=== PATIENT | female | born 1945 | race Caucasian/White ===

== ENCOUNTER → 2016-07-24 | Outpatient (REF) | payer MEDICARE, BC | END | disposition home or self-care (01) | LOC: M LAB REF 16:33 | PROVIDERS: ATTEND Obstetrics & Gynecology | DX: R39.89 Other symptoms and signs involving the genitourinary system (principal) ==

== ENCOUNTER → 2016-12-16 | Outpatient (REF) | payer MEDICARE, BC ==
[2016-12-16 12:26] LABS: ALBUMIN 3.9 GM/DL (3.2-5.2); ALBUMIN/GLOBULIN RATIO 1.34 (1.00-1.93); ALKALINE PHOSPHATASE 67 U/L (45-117); ALT/SGPT 34 U/L (12-78); ANION GAP 9 MEQ/L (8-16); AST/SGOT 24 U/L (15-37); BILIRUBIN,TOTAL 0.4 MG/DL (0.2-1.0); BLOOD UREA NITROGEN 12 MG/DL (7-18); CALCIUM LEVEL 9.7 MG/DL (8.8-10.2); CARBON DIOXIDE LEVEL 29 MEQ/L (21-32); CHLORIDE LEVEL 101 MEQ/L (98-107); CHOLESTEROL LEVEL 188 MG/DL (<200); CREATININE FOR GFR 0.75 MG/DL (0.55-1.02); GLOMERULAR FILTRATION RATE > 60.0 (>39); GLUCOSE, FASTING 136 MG/DL (83-110); POTASSIUM SERUM 3.7 MEQ/L (3.5-5.1); SODIUM LEVEL 139 MEQ/L (136-145); TOTAL PROTEIN 6.8 GM/DL (6.4-8.2); TRIGLYCERIDES LEVEL 270 MG/DL (<150)
== END ==
LOC: M SFHCCLAY 07:23
PROVIDERS: ATTEND Family Medicine
DX: E78.2 Mixed hyperlipidemia (principal); E11.9 Type 2 diabetes mellitus without complications; I10 Essential (primary) hypertension

== ENCOUNTER → 2017-06-07 | Outpatient (REF) | payer MEDICARE, BC ==
[2017-06-07 12:37] LABS: ALBUMIN 3.9 GM/DL (3.2-5.2); ALBUMIN/GLOBULIN RATIO 1.34 (1.00-1.93); ALKALINE PHOSPHATASE 75 U/L (45-117); ALT/SGPT 50 U/L (12-78); ANION GAP 10 MEQ/L (8-16); AST/SGOT 49 U/L (7-37); BILIRUBIN,TOTAL 0.6 MG/DL (0.2-1.0); BLOOD UREA NITROGEN 14 MG/DL (7-18); CALCIUM LEVEL 9.5 MG/DL (8.8-10.2); CARBON DIOXIDE LEVEL 29 MEQ/L (21-32); CHLORIDE LEVEL 101 MEQ/L (98-107); CHOLESTEROL LEVEL 189 MG/DL (<200); CREATININE FOR GFR 0.72 MG/DL (0.55-1.02); GLOMERULAR FILTRATION RATE > 60.0 (>39); GLUCOSE, FASTING 133 MG/DL (83-110); SODIUM LEVEL 140 MEQ/L (136-145); TOTAL PROTEIN 6.8 GM/DL (6.4-8.2); TRIGLYCERIDES LEVEL 237 MG/DL (<150)
== END ==
LOC: M SFHCCLAY 07:50
PROVIDERS: ATTEND Family Medicine
DX: E11.9 Type 2 diabetes mellitus without complications (principal); I10 Essential (primary) hypertension; E78.2 Mixed hyperlipidemia

== ENCOUNTER → 2017-06-24 | Outpatient (CLI) | payer MEDICARE, BC ==
--- NOTE | 2017-06-24 15:24 | REP ---
LEFT SHOULDER: Three views of the left shoulder are performed. No acute fracture or dislocation is seen. There is moderate narrowing and mild hypertrophic changes at the acromioclavicular joint. There appears to be mild narrowing at the glenohumeral joint. A small calcification at the margin of the superior bony glenoid may represent a tendinous or cartilaginous calcification. IMPRESSION: Mild degenerative changes.
== END ==
LOC: M CLY 11:59
PROVIDERS: ATTEND Family Medicine
DX: M19.012 Primary osteoarthritis, left shoulder (principal)

== ENCOUNTER 2017-06-28 14:41 | Outpatient (RCR) | payer MEDICARE, BC | END 2017-07-11 | LOC: M PT 06-30 11:19 | DX: Z51.89 Encounter for other specified aftercare (principal); M75.42 Impingement syndrome of left shoulder | CPT/HCPCS: 97110 ==

== ENCOUNTER → 2017-07-07 | Outpatient (CLI) | payer MEDICARE, BC | LOC: M WHC 10:07 | DX: Z12.31 Encounter for screening mammogram for malignant neoplasm of breast (principal); Z78.0 Asymptomatic menopausal state | CPT/HCPCS: G0202 ==

== ENCOUNTER 2017-07-13 12:49 | Outpatient (RCR) | payer MEDICARE, BC | END 2017-08-11 | LOC: M PT 12:49 | DX: Z51.89 Encounter for other specified aftercare (principal); M75.42 Impingement syndrome of left shoulder | CPT/HCPCS: 97110 ==

== ENCOUNTER → 2017-10-07 | Outpatient (REF) | payer MEDICARE, BC ==
[2017-10-07 11:33] LABS: ANION GAP 7 MEQ/L (8-16); BLOOD UREA NITROGEN 18 MG/DL (7-18); CARBON DIOXIDE LEVEL 27 MEQ/L (21-32); CHLORIDE LEVEL 107 MEQ/L (98-107); CREATININE FOR GFR 0.74 MG/DL (0.55-1.30); GLOMERULAR FILTRATION RATE > 60.0 (>39); GLUCOSE, FASTING 109 MG/DL (70-100); POTASSIUM SERUM 4.2 MEQ/L (3.5-5.1); SODIUM LEVEL 141 MEQ/L (136-145)
[2017-10-07 11:42] LABS: ESTIMATED AVERAGE GLUCOSE 137 MG/DL (60-110); HEMOGLOBIN A1c 6.4 %
== END ==
LOC: M SFHCCLAY 08:12
DX: I10 Essential (primary) hypertension (principal); E11.9 Type 2 diabetes mellitus without complications
CPT/HCPCS: 83036

== ENCOUNTER → 2018-04-19 | Outpatient (REF) | payer MEDICARE, BC ==
[2018-04-19 14:22] LABS: ALBUMIN 4.1 GM/DL (3.2-5.2); ALBUMIN/GLOBULIN RATIO 1.71 (1.00-1.93); ALKALINE PHOSPHATASE 77 U/L (45-117); ALT/SGPT 25 U/L (12-78); ANION GAP 5 MEQ/L (8-16); AST/SGOT 13 U/L (7-37); BILIRUBIN,TOTAL 0.4 MG/DL (0.2-1.0); BLOOD UREA NITROGEN 26 MG/DL (7-18); CALCIUM LEVEL 9.2 MG/DL (8.8-10.2); CARBON DIOXIDE LEVEL 30 MEQ/L (21-32); CHLORIDE LEVEL 106 MEQ/L (98-107); CREATININE FOR GFR 0.73 MG/DL (0.55-1.30); GLOMERULAR FILTRATION RATE > 60.0 (>39); GLUCOSE, FASTING 117 MG/DL (70-100); POTASSIUM SERUM 4.4 MEQ/L (3.5-5.1); SODIUM LEVEL 141 MEQ/L (136-145); TOTAL PROTEIN 6.5 GM/DL (6.4-8.2)
[2018-04-19 14:55] LABS: MALB URINE SIEMENS 21.7 MG/L
[2018-04-19 15:12] LABS: MAU/CREAT RATIO 16.2 MCG/MG (0.0-30.0)
[2018-04-19 17:00] LABS: ESTIMATED AVERAGE GLUCOSE 131 MG/DL (60-110); HEMOGLOBIN A1c 6.2 %
== END ==
LOC: M SFHCCLAY 08:06
DX: I10 Essential (primary) hypertension (principal); E11.9 Type 2 diabetes mellitus without complications
CPT/HCPCS: 84443

== ENCOUNTER → 2018-04-22 | Outpatient (REF) | payer MEDICARE, BC ==
[2018-04-22 16:19] LABS: HEMATOCRIT 37.5 % (36.0-47.0); HEMOGLOBIN 12.8 g/dl (12.0-15.5); MEAN CORPUSCULAR HEMOGLOBIN 30.2 pg (27.0-33.0); MEAN CORPUSCULAR HGB CONC 34.1 g/dl (32.0-36.5); MEAN CORPUSCULAR VOLUME 88.4 fl (80.0-96.0); PLATELET COUNT, AUTOMATED 214 10^3/uL (150-450); RED BLOOD COUNT 4.24 10^6/uL (4.00-5.40); RED CELL DISTRIBUTION WIDTH 13.2 % (11.5-14.5); WHITE BLOOD COUNT 6.1 10^3/uL (4.0-10.0)
== END ==
LOC: M SFHCCLAY 10:16
DX: R30.0 Dysuria (principal); R53.83 Other fatigue; Z23 Encounter for immunization
CPT/HCPCS: 85027

== ENCOUNTER → 2018-05-31 | Outpatient (REF) | payer MEDICARE, BC ==
[2018-05-31 17:01] LABS: FREE T4 0.99 NG/DL (0.76-1.46)
== END ==
LOC: M SFHCCLAY 10:40
DX: R94.6 Abnormal results of thyroid function studies (principal)
CPT/HCPCS: 84443

== ENCOUNTER → 2018-07-15 | Outpatient (CLI) | payer MEDICARE, BC ==
--- NOTE | 2018-07-15 12:53 | REPMRS ---
Patient History The patient states she has not had a clinical breast exam in over a year. Patient is postmenopausal. Family history of breast cancer at age 50 or over in sister, breast cancer at age 50 or over in paternal grandmother, breast cancer at age 30 in niece, prostate cancer at age 50 or over in father. Taking estrogen for 21 years. Digital Woman Screen Mammo: July 15, 2018 - Exam #: [id number] Bilateral CC and MLO view(s) were taken. Technologist: Sindi Amin, Technologist Prior study comparison: July 07, 2017, digital woman screen mammo performed at [facility]. June 30, 2016, digital woman screen mammo performed at [facility]. June 28, 2015, digital woman screen mammo performed at [facility]. FINDINGS: There are scattered fibroglandular densities. There is a moderate amount of residual fibroglandular tissue which is fairly symmetric. There is no interval development of dominant mass, architectural distortion, or clustered microcalcification typical of malignancy. There has been no change in the appearance of the mammogram from the prior studies. 3-D tomosynthesis shows no additional findings. Assessment: BI-RADS/ACR category 1 mammogram. Negative. Recommendation Routine screening mammogram of both breasts in 1 year (for women over age 40). This patient's Lifetime Breast Cancer RIsk is estimated at 10.4 %. This mammogram was interpreted with the aid of an FDA-approved computer-aided dectection system. Electronically Signed By: Homar Orellana MD 07/15/18 0769
== END ==
LOC: M WHC 10:08
PROVIDERS: ATTEND Family Medicine
DX: Z12.31 Encounter for screening mammogram for malignant neoplasm of breast (principal); Z78.0 Asymptomatic menopausal state

== ENCOUNTER → 2018-08-29 | Outpatient (REF) | payer MEDICARE, BC ==
[2018-08-29 12:32] LABS: BLOOD UREA NITROGEN 22 MG/DL (7-18); CALCIUM LEVEL 8.9 MG/DL (8.8-10.2); CARBON DIOXIDE LEVEL 26 MEQ/L (21-32); CHLORIDE LEVEL 104 MEQ/L (98-107); CREATININE FOR GFR 0.72 MG/DL (0.55-1.30); GLOMERULAR FILTRATION RATE > 60.0 (>39); GLUCOSE, FASTING 115 MG/DL (70-100); POTASSIUM SERUM 4.2 MEQ/L (3.5-5.1); SODIUM LEVEL 139 MEQ/L (136-145)
[2018-08-29 12:56] LABS: MALB URINE SIEMENS 13.6 MG/L; MAU/CREAT RATIO 9.7 MCG/MG (0.0-30.0)
[2018-08-29 12:57] LABS: HEMOGLOBIN A1c 6.2 %
== END ==
LOC: M SFHCCLAY 07:32
PROVIDERS: ATTEND Family Medicine
DX: E11.40 Type 2 diabetes mellitus with diabetic neuropathy, unspecified (principal)

== ENCOUNTER → 2018-10-09 | Outpatient (REF) | payer MEDICARE, BC | LOC: M LAB REF 12:36 | PROVIDERS: ATTEND Physician Assistant | DX: N39.0 Urinary tract infection, site not specified (principal) ==

== ENCOUNTER → 2019-02-23 | Outpatient (REF) | payer MEDICARE, BC ==
[2019-02-23 12:10] LABS: ALBUMIN 3.9 GM/DL (3.2-5.2); ALT/SGPT 18 U/L (12-78); BILIRUBIN,TOTAL 0.6 MG/DL (0.2-1.0); BLOOD UREA NITROGEN 19 MG/DL (7-18); CALCIUM LEVEL 9.2 MG/DL (8.8-10.2); CARBON DIOXIDE LEVEL 29 MEQ/L (21-32); CHLORIDE LEVEL 104 MEQ/L (98-107); CHOLESTEROL LEVEL 116 MG/DL (<200); CHOLESTEROL RISK RATIO 3.625 (<5); CREATININE FOR GFR 0.81 MG/DL (0.55-1.30); FREE T4 1.06 NG/DL (0.76-1.46); GLOMERULAR FILTRATION RATE > 60.0 (>39); GLUCOSE, FASTING 114 MG/DL (70-100); HDL CHOLESTEROL 32 MG/DL (>40); LDL CHOLESTEROL 54 MG/DL (<100); NON-HDL-C 84 MG/DL; POTASSIUM SERUM 4.1 MEQ/L (3.5-5.1); SODIUM LEVEL 141 MEQ/L (136-145); TOTAL PROTEIN 6.7 GM/DL (6.4-8.2); TRIGLYCERIDES LEVEL 149 MG/DL (<150)
[2019-02-23 13:33] LABS: HEMOGLOBIN A1c 6.8 %
== END ==
LOC: M SFHCCLAY 07:55
PROVIDERS: ATTEND Family Medicine
DX: E11.9 Type 2 diabetes mellitus without complications (principal); E78.2 Mixed hyperlipidemia

== ENCOUNTER → 2019-03-02 | Outpatient (REF) | payer MEDICARE, BC ==
[2019-03-02 17:29] LABS: APPEARANCE, URINE CLEAR (CLEAR); BACTERIA, URINE AUTO NEGATIVE (NEGATIVE); BILIRUBIN, URINE AUTO NEGATIVE (NEGATIVE); BLOOD, URINE BLOOD NEGATIVE (NEGATIVE); COLOR, URINE YELLOW (YELLOW); GLUCOSE, URINE (UA) AUTO NEGATIVE (NEGATIVE); KETONE, URINE AUTO NEGATIVE (NEGATIVE); LEUKOCYTE ESTERASE, URINE AUTO NEGATIVE (NEGATIVE); NITRITE, URINE AUTO NEGATIVE (NEGATIVE); PROTEIN, URINE AUTO NEGATIVE (NEGATIVE); RBC, URINE AUTO 0 /HPF (0-3); SQUAMOUS EPITHELIAL CELL UR AU 1 /HPF (0-6); UROBILINOGEN, URINE AUTO 0.2 mg/dL (0.0-2.0); WBC, URINE AUTO 0 /HPF (0-3)
== END ==
LOC: M SFHCCLAY 11:07
PROVIDERS: ATTEND Family Medicine
DX: R35.0 Frequency of micturition (principal)

== ENCOUNTER → 2019-04-24 | Outpatient (REF) | payer MEDICARE, BC ==
[2019-04-24 17:07] LABS: APPEARANCE, URINE HAZY (CLEAR); BACTERIA, URINE AUTO NEGATIVE (NEGATIVE); BILIRUBIN, URINE AUTO NEGATIVE (NEGATIVE); BLOOD, URINE BLOOD NEGATIVE (NEGATIVE); COLOR, URINE YELLOW (YELLOW); GLUCOSE, URINE (UA) AUTO NEGATIVE (NEGATIVE); KETONE, URINE AUTO NEGATIVE (NEGATIVE); LEUKOCYTE ESTERASE, URINE AUTO NEGATIVE (NEGATIVE); MUCUS, URINE SMALL (NEGATIVE); NITRITE, URINE AUTO NEGATIVE (NEGATIVE); PROTEIN, URINE AUTO NEGATIVE (NEGATIVE); RBC, URINE AUTO 0 /HPF (0-3); SPECIFIC GRAVITY URINE AUTO 1.008 (1.002-1.035); SQUAMOUS EPITHELIAL CELL UR AU 4 /HPF (0-6); UROBILINOGEN, URINE AUTO 0.2 mg/dL (0.0-2.0); WBC, URINE AUTO 1 /HPF (0-3)
== END ==
LOC: M LAB REF 16:21
PROVIDERS: ATTEND Obstetrics & Gynecology
DX: N39.46 Mixed incontinence (principal)

== ENCOUNTER → 2019-07-31 | Outpatient (CLI) | payer MEDICARE, BC ==
--- NOTE | 2019-07-31 18:00 | REPMRS ---
Patient History The patient states she had a clinical breast exam in 2018. Family history of breast cancer at age 50 or over in sister, breast cancer at age 50 or over in paternal grandmother, breast cancer at age 30 in niece, prostate cancer at age 50 or over in father. Taking estrogen for 21 years. Digital Woman Screen Mammo: July 31, 2019 - Exam #: [id number] Bilateral CC and MLO view(s) were taken. Technologist: Karla Thomas, Technologist Prior study comparison: July 15, 2018, bilateral digital woman screen mammo performed at [facility]. July 07, 2017, digital woman screen mammo performed at [facility]. June 30, 2016, digital woman screen mammo performed at [facility]. FINDINGS: There are scattered fibroglandular densities. There is a ill-defined nodular density in the upper outer quadrant on today's mammography which appears more prominent than previously. This is approximately 6 mm in diameter. It is not seen with confidence on both projections. This merits further evaluation. There has been no other change in the appearance of the mammogram from the prior studies. There is a mild amount of scattered fibroglandular density which is fairly symmetric. There is no other interval development of dominant mass, architectural distortion, or grouped microcalcification suggestive of malignancy. 3-D tomosynthesis shows no additional findings. Assessment: BI-RADS/ACR category 0 mammogram, Incomplete: Need additional imaging evaluation and/or prior mammograms for comparison. Recommendation Ultrasound and special view mammogram of the left breast. This patient's Lifetime Breast Cancer Risk is estimated at 9.8 %. This mammogram was interpreted with the aid of an FDA-approved computer-aided dectection system. Electronically Signed By: Homar Orellana MD 07/31/19 1800
== END ==
LOC: M WHC 15:27
PROVIDERS: ATTEND Family Medicine
DX: Z12.31 Encounter for screening mammogram for malignant neoplasm of breast (principal); Z80.3 Family history of malignant neoplasm of breast; Z80.42 Family history of malignant neoplasm of prostate; Z92.23 Personal history of estrogen therapy; N63.0 Unspecified lump in unspecified breast

== ENCOUNTER → 2019-08-10 | Outpatient (CLI) | payer MEDICARE, BC ==
--- NOTE | 2019-08-10 14:05 | REP ---
DIAGNOSTIC MAMMOGRAM LEFT BREAST: Multiple spot compression views of the left breast performed and correlated with the recent mammogram of 07/31/2019 which showed a possible irregular nodule in the upper outer quadrant of the left breast. Today's spot compression views demonstrate that the suspected nodular opacity compresses out to an unchanged appearance compared to other prior studies including 07/15/2018 and . No persistent nodule or spiculation or architectural distortion is seen. IMPRESSION: ACR1 negative. No persistent nodule on today's spot compression views. A followup mammogram is recommended in 1 year. Patient letter requested is M1. Electronically Signed by Charli Tucker MD 08/11/2019 12:32 P
== END ==
LOC: M RAD 12:54
PROVIDERS: ATTEND Family Medicine
DX: Z12.31 Encounter for screening mammogram for malignant neoplasm of breast (principal)

== ENCOUNTER → 2019-12-11 | Outpatient (REF) | payer MEDICARE, BC ==
[2019-12-11 11:44] LABS: ALBUMIN 3.5 GM/DL (3.2-5.2); ALT/SGPT 22 U/L (12-78); BILIRUBIN,TOTAL 0.5 MG/DL (0.2-1.0); BLOOD UREA NITROGEN 17 MG/DL (7-18); CALCIUM LEVEL 8.8 MG/DL (8.8-10.2); CARBON DIOXIDE LEVEL 28 MEQ/L (21-32); CHLORIDE LEVEL 106 MEQ/L (98-107); CHOLESTEROL LEVEL 113 MG/DL (<200); CHOLESTEROL RISK RATIO 3.645 (<5); CREATININE FOR GFR 0.71 MG/DL (0.55-1.30); GLOMERULAR FILTRATION RATE > 60.0 (>39); GLUCOSE, FASTING 117 MG/DL (70-100); HDL CHOLESTEROL 31 MG/DL (>40); LDL CHOLESTEROL 52 MG/DL (<100); NON-HDL-C 82 MG/DL; POTASSIUM SERUM 4.3 MEQ/L (3.5-5.1); SODIUM LEVEL 142 MEQ/L (136-145); TOTAL PROTEIN 6.3 GM/DL (6.4-8.2); TRIGLYCERIDES LEVEL 149 MG/DL (<150)
[2019-12-11 12:15] LABS: CREATININE, URINE 94.1 MG/DL; MALB URINE SIEMENS 9.3 MG/L; MAU/CREAT RATIO 9.8 MCG/MG (0.0-30.0)
[2019-12-11 14:32] LABS: HEMOGLOBIN A1c 6.5 %
== END ==
LOC: M SFHCCLAY 07:54
PROVIDERS: ATTEND Family Medicine
DX: E11.9 Type 2 diabetes mellitus without complications (principal); I10 Essential (primary) hypertension; E78.2 Mixed hyperlipidemia

== ENCOUNTER → 2020-01-06 | Outpatient (CLI) | payer MEDICARE, BC ==
--- NOTE | 2020-01-06 12:53 | REP ---
Clinical: Left ankle injury. Technique: AP, lateral, bilateral oblique views of the left ankle. Findings: Marked diffuse soft tissue swelling is appreciated. No obvious acute fracture dislocation. Skeletal structures demonstrate age-related changes and moderate calcaneal heal spur. Impression: 1. Diffuse soft tissue swelling. No acute fracture or dislocation. Electronically Signed by Jim Howe MD 01/06/2020 12:44 P
== END ==
LOC: M WUC 12:20
PROVIDERS: ATTEND Physician Assistant
DX: S90.32XA Contusion of left foot, initial encounter (principal); S93.402A Sprain of unspecified ligament of left ankle, initial encounter; W18.30XA Fall on same level, unspecified, initial encounter; Y92.9 Unspecified place or not applicable

== ENCOUNTER → 2020-03-15 | Outpatient (REF) | payer MEDICARE, BC ==
[2020-03-15 13:31] LABS: FREE T4 0.99 NG/DL (0.76-1.46); THYROID STIMULATING HORMONE 3.56 uIU/ML (0.358-3.740)
== END ==
LOC: M SFHCCLAY 11:30
PROVIDERS: ATTEND Family Medicine
DX: R79.89 Other specified abnormal findings of blood chemistry (principal); Z79.899 Other long term (current) drug therapy

== ENCOUNTER → 2020-06-18 | Outpatient (REF) | payer MEDICARE, BC ==
[2020-06-18 12:23] LABS: BLOOD UREA NITROGEN 23 MG/DL (7-18); CARBON DIOXIDE LEVEL 29 MEQ/L (21-32); CHLORIDE LEVEL 105 MEQ/L (98-107); CREATININE FOR GFR 0.74 MG/DL (0.55-1.30); GLOMERULAR FILTRATION RATE > 60.0 (>39); GLUCOSE, FASTING 128 MG/DL (70-100); POTASSIUM SERUM 4.1 MEQ/L (3.5-5.1); SODIUM LEVEL 139 MEQ/L (136-145)
[2020-06-18 12:40] LABS: MALB URINE SIEMENS 20.6 MG/L; MAU/CREAT RATIO 12.1 MCG/MG (0.0-30.0)
[2020-06-18 12:52] LABS: HEMOGLOBIN A1c 6.3 %
== END ==
LOC: M SFHCCLAY 07:03
PROVIDERS: ATTEND Family Medicine
DX: E11.9 Type 2 diabetes mellitus without complications (principal); I10 Essential (primary) hypertension

== ENCOUNTER → 2020-08-12 | Outpatient (CLI) | payer MEDICARE, BC ==
--- NOTE | 2020-08-12 10:36 | REPMRS ---
Patient History The patient states she had a clinical breast exam in June 2020.Family history of breast cancer at age 50 or over in sister, breast cancer at age 50 or over in paternal grandmother, breast cancer at age 30 in niece, prostate cancer at age 50 or over in father. Taking estrogen for 21 years. Digital Woman Screen Mammo: August 12, 2020 - Exam #: [id number] Bilateral CC and MLO view(s) were taken. Technologist: Jessi Reis, Technologist Prior study comparison: August 10, 2019, left breast digital mammo diagnostic unilateral, performed at [facility]. July 31, 2019, bilateral digital woman screen mammo performed at [facility]. July 15, 2018, bilateral digital woman screen mammo performed at [facility]. July 07, 2017, digital woman screen mammo performed at [facility]. FINDINGS: There are scattered fibroglandular densities. The Volpara volumetric breast density category is:B. There has been no change in the appearance of the mammogram from the prior studies. There is a mild amount of scattered fibroglandular density which is fairly symmetric. There is no interval development of dominant mass, architectural distortion, or grouped microcalcification suggestive of malignancy. 3-D tomosynthesis shows no additional findings. Assessment: BI-RADS/ACR category 1 mammogram. Negative Mammogram. Recommendation Routine screening mammogram of both breasts in 1 year (for women over age 40). This patient's [facility] Lifetime Breast Cancer Risk is estimated at 9.1 %. This mammogram was interpreted with the aid of an FDA-approved computer-aided dectection system. Electronically Signed By: Homar Orellana MD 08/12/20 2918
== END ==
LOC: M WHC 10:08
PROVIDERS: ATTEND Family Medicine
DX: Z12.31 Encounter for screening mammogram for malignant neoplasm of breast (principal); Z80.3 Family history of malignant neoplasm of breast; Z79.899 Other long term (current) drug therapy

== ENCOUNTER → 2020-10-31 | Outpatient (REF) | payer MEDICARE, BC ==
[2020-10-31 12:54] LABS: BLOOD UREA NITROGEN 13 MG/DL (7-18); CALCIUM LEVEL 9.9 MG/DL (8.8-10.2); CARBON DIOXIDE LEVEL 26 MEQ/L (21-32); CHLORIDE LEVEL 106 MEQ/L (98-107); CREATININE FOR GFR 0.71 MG/DL (0.55-1.30); GLOMERULAR FILTRATION RATE > 60.0 (>39); GLUCOSE, FASTING 138 MG/DL (70-100); POTASSIUM SERUM 4.1 MEQ/L (3.5-5.1); SODIUM LEVEL 140 MEQ/L (136-145)
[2020-10-31 13:26] LABS: HEMOGLOBIN A1c 6.2 %
== END ==
LOC: M SFHCCLAY 07:51
PROVIDERS: ATTEND Family Medicine
DX: E11.9 Type 2 diabetes mellitus without complications (principal)

== ENCOUNTER → 2020-11-06 | Outpatient (REF) | payer MEDICARE, BC ==
[2020-11-06 16:22] LABS: COLLAGEN EPINEPHRINE 91 SECONDS (74-162)
== END ==
LOC: M LABDRAWC 15:52
PROVIDERS: ATTEND Ophthalmology
DX: H02.032 Senile entropion of right lower eyelid (principal)
CPT/HCPCS: 36415; 85576; G0463

== ENCOUNTER → 2020-12-03 | Outpatient (CLI) | payer MEDICARE, BC ==
[2020-12-03 11:12] LABS: BLOOD UREA NITROGEN 12 MG/DL (7-18); CALCIUM LEVEL 9.5 MG/DL (8.8-10.2); CARBON DIOXIDE LEVEL 29 MEQ/L (21-32); CHLORIDE LEVEL 106 MEQ/L (98-107); CREATININE FOR GFR 0.67 MG/DL (0.55-1.30); GLOMERULAR FILTRATION RATE > 60.0 (>39); GLUCOSE, FASTING 116 MG/DL (70-100); POTASSIUM SERUM 4.6 MEQ/L (3.5-5.1); SODIUM LEVEL 140 MEQ/L (136-145)
--- NOTE | 2020-12-03 20:47 | ECGEPIP ---
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
== END ==
LOC: M LAB 08:41
PROVIDERS: ATTEND Ophthalmology
DX: H02.052 Trichiasis without entropion right lower eyelid (principal); I45.19 Other right bundle-branch block

== ENCOUNTER → 2021-01-02 | Outpatient (REF) | payer MEDICARE, BC ==
[~2021-01-02] MED LIST: ATEN25TA PO; ATOR1TAB19 PO; ESTR0.5T3 PO; METF500T13 PO
[2021-01-02 16:10] LABS: HEMATOCRIT 40.1 % (36.0-47.0); MEAN CORPUSCULAR HEMOGLOBIN 28.6 pg (27.0-33.0); MEAN CORPUSCULAR HGB CONC 32.4 g/dl (32.0-36.5); MEAN CORPUSCULAR VOLUME 88.3 fl (80.0-96.0); PLATELET COUNT, AUTOMATED 223 10^3/uL (150-450); RED BLOOD COUNT 4.54 10^6/uL (4.00-5.40); WHITE BLOOD COUNT 5.9 10^3/uL (4.0-10.0)
[2021-01-02 16:36] LABS: APPEARANCE, URINE HAZY (CLEAR); BACTERIA, URINE AUTO NEGATIVE (NEGATIVE); BILIRUBIN, URINE AUTO NEGATIVE (NEGATIVE); BLOOD, URINE BLOOD NEGATIVE (NEGATIVE); COLOR, URINE YELLOW (YELLOW); GLUCOSE, URINE (UA) AUTO NEGATIVE (NEGATIVE); KETONE, URINE AUTO NEGATIVE (NEGATIVE); LEUKOCYTE ESTERASE, URINE AUTO NEGATIVE (NEGATIVE); NITRITE, URINE AUTO NEGATIVE (NEGATIVE); PROTEIN, URINE AUTO NEGATIVE (NEGATIVE); RBC, URINE AUTO 0 /HPF (0-3); SPECIFIC GRAVITY URINE AUTO 1.005 (1.002-1.035); SQUAMOUS EPITHELIAL CELL UR AU 1 /HPF (0-6); UROBILINOGEN, URINE AUTO 0.2 mg/dL (0.0-2.0); WBC, URINE AUTO 0 /HPF (0-3)
[2021-01-02 16:36] LABS: ALBUMIN 4.1 GM/DL (3.2-5.2); ALT/SGPT 25 U/L (12-78); BILIRUBIN,TOTAL 0.6 MG/DL (0.2-1.0); BLOOD UREA NITROGEN 11 MG/DL (7-18); CALCIUM LEVEL 9.3 MG/DL (8.8-10.2); CARBON DIOXIDE LEVEL 31 MEQ/L (21-32); CHLORIDE LEVEL 105 MEQ/L (98-107); CREATININE FOR GFR 0.68 MG/DL (0.55-1.30); GLOMERULAR FILTRATION RATE > 60.0 (>39); GLUCOSE, FASTING 106 MG/DL (70-100); POTASSIUM SERUM 4.1 MEQ/L (3.5-5.1); SODIUM LEVEL 139 MEQ/L (136-145); TOTAL PROTEIN 7.1 GM/DL (6.4-8.2)
== END ==
LOC: M SFHCCLAY 11:09
PROVIDERS: ATTEND Family Medicine
DX: R10.30 Lower abdominal pain, unspecified (principal); E11.9 Type 2 diabetes mellitus without complications
CPT/HCPCS: 80053; 81001; 85027; G0463

== ENCOUNTER → 2021-01-14 | Outpatient (CLI) | payer MEDICARE, BC ==
[~2021-01-14] MED LIST changes: +GASTROGRAFIN SOLUTION 30ML (Q9963) As Ordered ONE; +ISOVUE-370 76% 100ML VIAL As Ordered ONE
--- NOTE | 2021-01-14 15:56 | REP ---
INDICATION: LOWER ABD PAIN. COMPARISON: None. TECHNIQUE: Standard helical technique after the intravenous administration of 100 cc Isovue 370 and oral bowel preparatory contrast administration FINDINGS: The lung bases are clear. The liver, adrenal glands, and kidneys are within normal limits. There is para-aortic adenopathy with encasement of the left renal artery. The masslike adenopathy also encases the common iliac artery bilaterally. There is a soft tissue mass density in the retroperitoneum posterior to and or arising from the pancreatic body. There is no evidence of intrapancreatic ductal dilatation. There is evidence of a large mass in the small bowel mesentery at the level of the iliac crests which measures approximately 11.7 by 9 x 8 cm abutting and or encasing multiple small bowel loops and in fact difficult to separate out compressed small bowel loops from the mass itself. The aforementioned abnormal mesenteric soft tissue mass abuts the mesenteric side of the cecum. There is no evidence of free fluid or free air. There is abnormal seemingly subcapsular perisplenic fluid. There is a ventral hernia the aperture of which measures 1.5 cm and through which only so mesentery protrudes. Bone window technique throughout the exam shows no evidence of a lytic or blastic osseous lesion. Incidental note is made of partial sacralization of L5 on the left. IMPRESSION: Extensive intra-abdominal/retroperitoneal/intrapelvic mass density as described above. Exact etiology uncertain. Whether this represents a gut primary or lymphatic system primary cannot be determined by this exam. Additionally, I cannot rule out a pancreatic primary. 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 Additional findings as described above. <Electronically signed by Rony Torres > 01/14/21 [id number]
== END ==
LOC: M RAD 13:35
PROVIDERS: ATTEND Family Medicine
DX: K63.9 Disease of intestine, unspecified (principal); R10.30 Lower abdominal pain, unspecified
CPT/HCPCS: 74177; Q9963; Q9967

== ENCOUNTER → 2021-01-15 | Outpatient (REF) | payer MEDICARE, BC ==
[~2021-01-15] MED LIST changes: -GASTROGRAFIN SOLUTION 30ML (Q9963) As Ordered ONE; -ISOVUE-370 76% 100ML VIAL As Ordered ONE
[2021-01-15 17:14] LABS: CA 125 59.4 U/ML (<30.2)
== END ==
LOC: M SFHCCLAY 13:13
PROVIDERS: ATTEND Family Medicine
DX: C76.2 Malignant neoplasm of abdomen (principal)

== ENCOUNTER → 2021-01-20 | Outpatient (CLI) | payer MEDICARE, BC ==
[~2021-01-20] MED LIST changes: +ACETAMINOPHEN 325 MG TAB As Ordered ONE; +LIDOCAINE 1% MDV 20ML VIAL As Ordered ONE
[2021-01-20 15:45] VITALS: BP 148/88
--- NOTE | 2021-01-21 07:56 | REP ---
INDICATION: INTRA ABD MASS. COMPARISON: None. TECHNIQUE: Procedure was performed under the direct supervision of Dr. Orellana. The patient has a history of an intra-mass as well as retroperitoneal lymphadenopathy seen on a previous CT scan dated 01/14/2021. The risks and benefits of the procedure were explained to the patient and informed consent was obtained. The retroperitoneal lymph node was localized using CT guidance. The skin was prepped and draped in a sterile fashion. 1% lidocaine was used as a local anesthetic. Using CT guidance a 19/20 gauge coaxial needle biopsy system was inserted and advanced into the lymph node. Eight core biopsy samples were obtained and sent to the lab for analysis. The patient tolerated the procedure well and there were no immediate complications. After the appropriate amount to monitor convalescence the patient was discharged from the department. FINDINGS: None IMPRESSION: CT-guided retroperitoneal lymph node biopsy. <Electronically signed by Kemar Russ > 01/20/21 1819 <Electronically signed by Homar Orellana > 01/21/21 3950
== END ==
LOC: M IRPRO 13:05
PROVIDERS: ATTEND Family Medicine
DX: C76.2 Malignant neoplasm of abdomen (principal)

== ENCOUNTER → 2021-02-14 | Outpatient (CLI) | payer MEDICARE, BC ==
[~2021-02-14] MED LIST changes: -ACETAMINOPHEN 325 MG TAB As Ordered ONE; -LIDOCAINE 1% MDV 20ML VIAL As Ordered ONE
--- NOTE | 2021-02-14 09:37 | REP ---
INDICATION: PAIN. Injury. COMPARISON: None. TECHNIQUE: Four views of the right ankle were obtained. FINDINGS: There is nonspecific soft tissue swelling over the lateral malleolus. There are multiple ununited avulsion fractures of the medial and lateral malleoli. There is mild arthritis of the ankle joint, subtalar joint, the talonavicular joint and the calcaneocuboid joint. There is a moderate plantar spur. There is a posterior heel spur. IMPRESSION: 1. Lateral ankle sprain. 2. Mild multifocal arthropathy. 3. Heel spurs. <Electronically signed by Connor Barksdale > 02/14/21 0900
== END ==
LOC: M WUC 08:40
PROVIDERS: ATTEND Physician Assistant
DX: S93.401A Sprain of unspecified ligament of right ankle, initial encounter (principal); X58.XXXA Exposure to other specified factors, initial encounter; Y92.9 Unspecified place or not applicable; Y99.9 Unspecified external cause status
CPT/HCPCS: 73610; G0463

== ENCOUNTER → 2021-02-28 | Outpatient (REF) | payer MEDICARE, BC | LOC: M LAB REF 13:35 | PROVIDERS: ATTEND Physician Assistant | DX: C85.93 Non-Hodgkin lymphoma, unspecified, intra-abdominal lymph nodes (principal) ==

== ENCOUNTER → 2021-02-28 | Outpatient (CLI) | payer MEDICARE, BC ==
--- NOTE | 2021-03-02 08:55 | ECHO ---
ECHOCARDIOGRAM DATE OF PROCEDURE: 02/28/2021 Age: 76 Gender: Female Height: 65 inches Weight: 160 pounds Body surface area: 1.8 m2 PATIENT LOCATION: Outpatient. REFERRING PHYSICIAN: Sly Machado INDICATION: Murmur, preoperative assessment. MEASUREMENTS: 2D Measurements: RV - 3.3 cm LV - 3.8 cm Septum 1.3 cm Posterior wall 1.2 cm Aortic root 3.0 cm LA - 4.4 cm LVEF 75% Doppler Measurements: AV - 2.8 m/sec LVOT - 1.0 m/sec LVOT diameter 1.8 cm Mean AV gradient 17 mmHg Dimensionless index 0.38 MV-E 75, A 116, EA ratio 0.7 Early mitral deceleration time 280 msec E prime medial 4.9 A prime medial 9 E prime lateral 6.3 Average E/E prime ratio 13.4/PCWP - 18.5 mmHg PV - 0.9 m/sec Pulmonary artery acceleration time 95 msec RVSP 39 mmHg IVC - 1.7 cm COMMENTS: Normal sinus rhythm/sinus bradycardia without intraventricular conduction disturbance. M-mode and 2-dimensional echocardiography was performed with pulse, continuous wave, color flow and tissue Doppler studies. Mild concentric left ventricular hypertrophy with hyperkinetic wall motion. Mildly dilated left atrium with grade 1 left ventricular (LV) diastolic dysfunction and slightly elevated mean left atrial pressure. Normal right heart chamber sizes and wall motion with mild pulmonary hypertension. Normal inferior vena cava (IVC) size and collapse against an elevated central venous pressure. Normal aortic dimensions. Mild-moderate calcific aortic stenosis with trace insufficiency. Moderate mitral annular calcification without LV inflow tract obstruction and no more than very mild insufficiency. Normal appearing tricuspid valve with mild insufficiency (physiological). No apparent intracardiac mass or pericardial effusion. Based on the above test findings, we would recommend a followup study in two years' time.
== END ==
LOC: M CARPUL 13:30
PROVIDERS: ATTEND Surgery
DX: R01.1 Cardiac murmur, unspecified (principal); K63.89 Other specified diseases of intestine

== ENCOUNTER → 2021-03-12 | Outpatient (CLI) | payer MEDICARE, BC ==
[2021-03-12 14:34] LABS: BASO # 0.1 10^3/uL (0.0-0.2); BASO % 0.7 % (0.0-1.0); EOS # 0.1 10^3/uL (0.0-0.5); EOS % 1.8 % (0.0-3.0); HEMATOCRIT 33.3 % (36.0-47.0); HEMOGLOBIN 10.9 g/dl (12.0-15.5); LYMPH # 0.3 10^3/uL (1.5-5.0); LYMPH % 4.2 % (24.0-44.0); MEAN CORPUSCULAR HEMOGLOBIN 28.5 pg (27.0-33.0); MEAN CORPUSCULAR HGB CONC 32.7 g/dl (32.0-36.5); MEAN CORPUSCULAR VOLUME 87.2 fl (80.0-96.0); MONO # 0.7 10^3/uL (0.0-0.8); MONO % 9.6 % (2.0-8.0); NEUTROPHILS # 6.4 10^3/uL (1.5-8.5); NEUTROPHILS % 82.7 % (36.0-66.0); PLATELET COUNT, AUTOMATED 311 10^3/uL (150-450); RED BLOOD COUNT 3.82 10^6/uL (4.00-5.40); WHITE BLOOD COUNT 7.7 10^3/uL (4.0-10.0)
[2021-03-12 15:06] LABS: ALBUMIN 3.2 GM/DL (3.2-5.2); ALT/SGPT 18 U/L (12-78); BILIRUBIN,TOTAL 0.5 MG/DL (0.2-1.0); BLOOD UREA NITROGEN 7 MG/DL (7-18); CALCIUM LEVEL 9.3 MG/DL (8.8-10.2); CARBON DIOXIDE LEVEL 28 MEQ/L (21-32); CHLORIDE LEVEL 104 MEQ/L (98-107); CREATININE FOR GFR 0.73 MG/DL (0.55-1.30); GLOMERULAR FILTRATION RATE > 60.0 (>39); GLUCOSE, FASTING 143 MG/DL (70-100); LDH LACTATE DEHYDROGENASE 200 U/L (84-246); MAGNESIUM LEVEL 1.7 MG/DL (1.8-2.4); PHOSPHORUS LEVEL 2.8 MG/DL (2.5-4.9); POTASSIUM SERUM 3.9 MEQ/L (3.5-5.1); SODIUM LEVEL 139 MEQ/L (136-145); TOTAL PROTEIN 6.3 GM/DL (6.4-8.2); URIC ACID 5.5 MG/DL (2.6-6.0)
== END ==
LOC: M LAB 14:05
PROVIDERS: ATTEND Internal Medicine Hematology & Oncology
DX: C85.93 Non-Hodgkin lymphoma, unspecified, intra-abdominal lymph nodes (principal)

== ENCOUNTER → 2021-06-09 | Outpatient (CLI) | payer MEDICARE, BC ==
[~2021-06-09] MED LIST changes: +ALLO100T PO; +CLAR10CA3 PO; +COLA100C5 PO; +DOCU100C16 PO; +ESTR1TAB3; +GASTROGRAFIN SOLUTION 30ML (Q9963) As Ordered ONE; +ISOVUE-370 76% 100ML VIAL As Ordered ONE; +K-TA10TA2 PO; +LIDO1CRE42 TOP; +LOPE-39 PO; +LORA-674 PO; +LORA1TAB4 PO; +MECL-136 PO; +MECL-86 PO; +MECL1TAB31 PO; +MILKSUS3 PO; +MILKSUS7 PO; +MIRA3350 PO; +NAPR220C23 PO; +NAPR220C24 PO; +ONDA-83 PO; +ONETTES13; +ONETTES13 METER; +PANT40TA29 PO; +POTA-151 PO; +POTA10808 PO; +POTA10TA67 PO; +PRED50TA PO; +SENN-80 PO
== END ==
LOC: M RAD 11:43
PROVIDERS: ATTEND Specialist
DX: C83.30 Diffuse large B-cell lymphoma, unspecified site (principal); R91.8 Other nonspecific abnormal finding of lung field
CPT/HCPCS: 71260; 74177; Q9963; Q9967

== ENCOUNTER → 2021-06-11 | Outpatient (REF) | payer MEDICARE, BC ==
[~2021-06-11] MED LIST changes: -CLAR10CA3 PO; -COLA100C5 PO; -ESTR1TAB3; -GASTROGRAFIN SOLUTION 30ML (Q9963) As Ordered ONE; -ISOVUE-370 76% 100ML VIAL As Ordered ONE; -K-TA10TA2 PO; -MECL-86 PO; -MECL1TAB31 PO; -MILKSUS3 PO; -MILKSUS7 PO; -MIRA3350 PO; -NAPR220C24 PO; -POTA-151 PO; +POTA20TA6 PO
== END ==
LOC: M SFHCCLAY 09:34
PROVIDERS: ATTEND Family Medicine
DX: R30.0 Dysuria (principal)

== ENCOUNTER 2021-07-14 05:29 | Emergency (ER) | payer MEDICARE, BC ==
[2021-07-14] MEDS ORDERED: MECLIZINE 25 MG TABLET PO ONE (06:25)
[2021-07-14 06:44] LABS: HEMATOCRIT 32.3 % (36.0-47.0); HEMOGLOBIN 10.6 g/dl (12.0-15.5); MEAN CORPUSCULAR HEMOGLOBIN 30.4 pg (27.0-33.0); MEAN CORPUSCULAR HGB CONC 32.8 g/dl (32.0-36.5); MEAN CORPUSCULAR VOLUME 92.6 fl (80.0-96.0); PLATELET COUNT, AUTOMATED 176 10^3/uL (150-450); RED BLOOD COUNT 3.49 10^6/uL (4.00-5.40); WHITE BLOOD COUNT 7.5 10^3/uL (4.0-10.0)
--- NOTE | 2021-07-14 07:15 | REPVR ---
PROCEDURE INFORMATION: Exam: CT Head Without Contrast Exam date and time: 07/14/2021 6:58 AM Age: 76 years old Clinical indication: Pain; Headache; Additional info: Dizziness TECHNIQUE: Imaging protocol: Computed tomography of the head without contrast. Radiation optimization: All CT scans at this facility use at least one of these dose optimization techniques: automated exposure control; mA and/or kV adjustment per patient size (includes targeted exams where dose is matched to clinical indication); or iterative reconstruction. COMPARISON: No relevant prior studies available. FINDINGS: Brain: Patchy lucencies in the white matter are nonspecific but most suggestive of chronic microvascular ischemic disease. There is no evidence for large acute cortical infarct. There is no significant intracranial mass effect. Cerebral ventricles: The ventricles and sulci are mildly prominent, in concordance with mild global atrophy. Paranasal sinuses: Visualized sinuses are unremarkable. No fluid levels. Mastoid air cells: Visualized mastoid air cells are well aerated. Vasculature: Intracranial atherosclerotic vascular calcifications are noted. Bones/joints: Unremarkable. No acute fracture. Soft tissues: Unremarkable. IMPRESSION: No CT evidence for acute intracranial abnormality. Electronically signed by: Stephon Beltran On 07/14/2021 07:14:56 AM
--- NOTE | 2021-07-14 07:16 | REPVR ---
PROCEDURE INFORMATION: Exam: XR Chest Exam date and time: 07/14/2021 6:57 AM Age: 76 years old Clinical indication: Other: Dizziness TECHNIQUE: Imaging protocol: XR of the chest. Views: 1 view. COMPARISON: CT Chest with contrast 06/09/2021 1:31 PM (report not provided) FINDINGS: Tubes, catheters and devices: A left-sided Port-A-Cath is present with its tip in the SVC. Lungs: There is minor bibasilar atelectasis/scarring. The lungs are otherwise clear. Pleural spaces: Unremarkable. No pleural effusion. No pneumothorax. Heart/Mediastinum: Unremarkable. No cardiomegaly. Bones/joints: Unremarkable. IMPRESSION: No evidence for acute pulmonary disease. Electronically signed by: Stephon Beltran On 07/14/2021 07:16:10 AM
[2021-07-14 07:18] LABS: ANISOCYTOSIS 1+; EOSINOPHILS 3 % (0-3); LYMPHOCYTES 2 % (16-44); MONOCYTES 2 % (0-5); NEUTROPHILS 93 % (28-66); PLATELET ESTIMATE NORMAL (NORMAL)
[2021-07-14 07:25] LABS: ALBUMIN 3.5 GM/DL (3.2-5.2); ALT/SGPT 20 U/L (12-78); BILIRUBIN,DIRECT 0.2 MG/DL (0.0-0.2); BILIRUBIN,TOTAL 0.4 MG/DL (0.2-1.0); BLOOD UREA NITROGEN 16 MG/DL (7-18); CALCIUM LEVEL 9.1 MG/DL (8.8-10.2); CARBON DIOXIDE LEVEL 30 MEQ/L (21-32); CHLORIDE LEVEL 103 MEQ/L (98-107); CREATININE FOR GFR 0.43 MG/DL (0.55-1.30); FREE T4 1.24 NG/DL (0.76-1.46); GLOMERULAR FILTRATION RATE > 60.0 (>39); GLUCOSE, FASTING 118 MG/DL (70-100); POTASSIUM SERUM 3.6 MEQ/L (3.5-5.1); SODIUM LEVEL 140 MEQ/L (136-145)
[2021-07-14 08:04] VITALS: O2SAT 98
[2021-07-14] MEDS ORDERED: NS 250 ML IV ONE (08:05)
[2021-07-14] MEDS ORDERED: PROHANCE 279.3MG/ML 15ML VIAL As Ordered ONE (08:33)
--- NOTE | 2021-07-14 09:47 | REPVR ---
PROCEDURE INFORMATION: Exam: MR Head Without and With Contrast Exam date and time: 07/14/2021 9:07 AM Age: 76 years old Clinical indication: Condition or disease; History of cancer (specify primary cancer site): ; Primary cancer: Lymphoma; Dizziness and weakness, extremity; Bilateral; Additional info: HX lymphoma; Dizziness since 6pm last night TECHNIQUE: Imaging protocol: MR of the head without and with intravenous contrast. Contrast material: PROHANCE; Contrast volume: 11 ml; Contrast route: INTRAVENOUS (IV); COMPARISON: CT Head without contrast 07/14/2021 6:55 AM FINDINGS: Brain: There is no extra-axial collection or intra-axial mass. Moderate diffuse volume loss is within the range of normal for patient age. There are scattered foci of T2/FLAIR white matter hyperintensity, nonspecific but typically small-vessel ischemia in this age group. There is no diffusion restriction. There is no abnormal enhancement within the brain. Cerebral ventricles: Normal. No ventriculomegaly. Bones/joints: Unremarkable. Paranasal sinuses: Normal as visualized. No acute sinusitis. Mastoid air cells: Normal as visualized. No mastoid effusion. Orbital cavity: Unremarkable. Soft tissues: Unremarkable. IMPRESSION: No acute intracranial abnormality. Electronically signed by: Justyna Cline On 07/14/2021 09:47:01 AM
[2021-07-14] MEDS ORDERED: MECL1TAB31 PO (09:59)
[2021-07-14 10:06] VITALS: BP 177/79
[2021-07-14] MEDS ORDERED: ALLO100T PO (14:19)
[2021-07-14] MEDS ORDERED: POTA10TA67 PO (14:19)
--- NOTE | 2021-07-14 18:32 | ECGEPIP ---
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
== END 2021-07-14 10:10 | disposition home or self-care (01) ==
LOC: EDBD 05:29 → M ED 05:29
DX: H81.399 Other peripheral vertigo, unspecified ear (principal); E11.9 Type 2 diabetes mellitus without complications; I10 Essential (primary) hypertension; C83.30 Diffuse large B-cell lymphoma, unspecified site; Z79.899 Other long term (current) drug therapy
CPT/HCPCS: 36415; 70450; 70553; 71045; 80048; 80076; 84439; 84443; 84484; 85025; 93005; 93041; 94760; 99285; A9576

== ENCOUNTER 2021-08-16 09:59 | Emergency (ER) | payer MEDICARE, BC ==
[~2021-08-16] VITALS: Ht 167.6 cm; Wt 59.1 kg
[~2021-08-16 09:59] MED LIST changes: +MECL1TAB31 PO; +POTA-151 PO; -POTA20TA6 PO
[2021-08-16] MEDS ORDERED: MILKSUS7 PO (10:14)
[2021-08-16] MEDS ORDERED: ESTR1TAB3 (10:14)
[2021-08-16 12:55] VITALS: BP 152/70
== END 2021-08-16 12:56 | disposition home or self-care (01) ==
LOC: M ED 09:59
DX: K59.00 Constipation, unspecified (principal); E11.9 Type 2 diabetes mellitus without complications; I10 Essential (primary) hypertension; C85.90 Non-Hodgkin lymphoma, unspecified, unspecified site; Z88.2 Allergy status to sulfonamides; Z79.899 Other long term (current) drug therapy; Z79.810 Long term (current) use of selective estrogen receptor modulators (SERMs)

== ENCOUNTER → 2021-08-22 | Outpatient (REF) | payer MEDICARE, BC ==
[~2021-08-22] MED LIST changes: +CLAR10CA3 PO; +COLA100C5 PO; +ESTR1TAB3; +K-TA10TA2 PO; +MECL-86 PO; +MILKSUS3 PO; +MILKSUS7 PO; +MIRA3350 PO; +MORP-69 PO; +NAPR220C24 PO
== END ==
LOC: M SFHCCLAY 09:44
PROVIDERS: ATTEND Family Medicine
DX: N30.90 Cystitis, unspecified without hematuria (principal)

== ENCOUNTER → 2021-08-25 | Outpatient (CLI) | payer MEDICARE, BC ==
[~2021-08-25] MED LIST changes: -MORP-69 PO
== END ==
LOC: M PLARAD 10:17
PROVIDERS: ATTEND Specialist
DX: C83.38 Diffuse large B-cell lymphoma, lymph nodes of multiple sites (principal)

== ENCOUNTER 2021-09-03 07:50 | Outpatient (RCR) | payer MEDICARE, BC ==
[2021-09-10] MEDS ORDERED: ONDA-83 PO (10:43)
== END 2021-09-08 ==
LOC: M ONCR 07:50
PROVIDERS: ATTEND General Practice
DX: C83.33 Diffuse large B-cell lymphoma, intra-abdominal lymph nodes (principal)

== ENCOUNTER → 2021-09-09 | Outpatient (REF) | payer MEDICARE, BC ==
[~2021-09-09] MED LIST changes: +MORP-69 PO; +MUPI30CR TOP
[2021-09-10 11:28] LABS: HEMOGLOBIN 10.8 g/dl (12.0-15.5); MEAN CORPUSCULAR HEMOGLOBIN 27.6 pg (27.0-33.0); MEAN CORPUSCULAR HGB CONC 31.8 g/dl (32.0-36.5); PLATELET COUNT, AUTOMATED 369 10^3/uL (150-450); RED BLOOD COUNT 3.91 10^6/uL (4.00-5.40); WHITE BLOOD COUNT 11.7 10^3/uL (4.0-10.0)
[2021-09-10 12:20] LABS: ALBUMIN 2.9 GM/DL (3.2-5.2); ALT/SGPT 18 U/L (12-78); BILIRUBIN,TOTAL 0.5 MG/DL (0.2-1.0); BLOOD UREA NITROGEN 25 MG/DL (7-18); CALCIUM LEVEL 8.9 MG/DL (8.8-10.2); CARBON DIOXIDE LEVEL 27 MEQ/L (21-32); CHLORIDE LEVEL 98 MEQ/L (98-107); CREATININE FOR GFR 0.55 MG/DL (0.55-1.30); GLOMERULAR FILTRATION RATE > 60.0 (>39); GLUCOSE, FASTING 114 MG/DL (70-100); IRON (FE) 24 UG/DL (50-170); PERCENT SATURATION 7.8 % (13.2-45.0); POTASSIUM SERUM 3.9 MEQ/L (3.5-5.1); SODIUM LEVEL 135 MEQ/L (136-145); TOTAL IRON BINDING CAPACITY 308 UG/DL (250-450); TOTAL PROTEIN 5.1 GM/DL (6.4-8.2)
== END ==
LOC: M SFHCCLAY 13:51
PROVIDERS: ATTEND Family Medicine
DX: D64.9 Anemia, unspecified (principal); E87.6 Hypokalemia; K52.9 Noninfective gastroenteritis and colitis, unspecified; C85.13 Unspecified B-cell lymphoma, intra-abdominal lymph nodes

== ENCOUNTER → 2021-10-09 | Outpatient (RCR) | payer MEDICARE, BC ==
[2021-09-22 10:42] LABS: BASO % 0.4 % (0.0-1.0); EOS % 0.4 % (0.0-3.0); HEMATOCRIT 34.3 % (36.0-47.0); HEMOGLOBIN 11.1 g/dl (12.0-15.5); LYMPH % 0.9 % (24.0-44.0); MEAN CORPUSCULAR HEMOGLOBIN 26.8 pg (27.0-33.0); MEAN CORPUSCULAR HGB CONC 32.4 g/dl (32.0-36.5); MEAN CORPUSCULAR VOLUME 82.9 fl (80.0-96.0); MONO # 0.6 10^3/uL (0.0-0.8); MONO % 13.8 % (2.0-8.0); NEUTROPHILS # 3.7 10^3/uL (1.5-8.5); NEUTROPHILS % 82.9 % (36.0-66.0); PLATELET COUNT, AUTOMATED 162 10^3/uL (150-450); RED BLOOD COUNT 4.14 10^6/uL (4.00-5.40); WHITE BLOOD COUNT 4.5 10^3/uL (4.0-10.0)
[2021-09-22 11:16] LABS: ALBUMIN 2.5 GM/DL (3.2-5.2); ALT/SGPT 20 U/L (12-78); BILIRUBIN,TOTAL 0.4 MG/DL (0.2-1.0); BLOOD UREA NITROGEN 20 MG/DL (7-18); CALCIUM LEVEL 8.3 MG/DL (8.8-10.2); CARBON DIOXIDE LEVEL 21 MEQ/L (21-32); CHLORIDE LEVEL 102 MEQ/L (98-107); CREATININE FOR GFR 0.38 MG/DL (0.55-1.30); GLOMERULAR FILTRATION RATE > 60.0 (>39); GLUCOSE, FASTING 115 MG/DL (70-100); MAGNESIUM LEVEL 1.1 MG/DL (1.8-2.4); POTASSIUM SERUM 2.6 MEQ/L (3.5-5.1); SODIUM LEVEL 137 MEQ/L (136-145); TOTAL PROTEIN 4.4 GM/DL (6.4-8.2)
[~2021-10-09] MED LIST changes: +MAGN400C PO; +MAGNESIUM SULFATE IV ONE; +NS 1,000 ML IV SCH; +NS IV ONE; +POTASSIUM CHLORIDE IV ONE
== END ==
LOC: M ONCR 09-09 13:37
PROVIDERS: ATTEND General Practice
DX: C83.33 Diffuse large B-cell lymphoma, intra-abdominal lymph nodes (principal)
CPT/HCPCS: 36591; 77290; 77300; 77301; 77336; 77338; 77386; 80053; 83735; 85025; J3475

== ENCOUNTER 2021-10-17 08:44 | Outpatient (RCR) | payer MEDICARE, BC ==
[~2021-10-17 08:44] MED LIST changes: -MAGNESIUM SULFATE IV ONE; -NS 1,000 ML IV SCH; -NS IV ONE; -POTASSIUM CHLORIDE IV ONE
[2021-10-17] MEDS ORDERED: PROSLIQ PO (09:35)
[2021-10-23] MEDS ORDERED: MUPI30CR TOP (09:04)
[2021-10-28] MEDS ORDERED: ALLO100T PO (13:14)
== END 2021-11-08 ==
LOC: M ONCR 08:44
PROVIDERS: ATTEND General Practice
DX: C83.33 Diffuse large B-cell lymphoma, intra-abdominal lymph nodes (principal)

== ENCOUNTER 2021-11-05 09:53 | Outpatient (RCR) | payer MEDICARE, BC ==
[~2021-11-05 09:53] MED LIST changes: +PROSLIQ PO
== END 2021-11-08 ==
LOC: M PT 09:53
PROVIDERS: ATTEND General Practice
DX: C83.33 Diffuse large B-cell lymphoma, intra-abdominal lymph nodes (principal)

== ENCOUNTER → 2021-11-13 | Outpatient (CLI) | payer MEDICARE, BC ==
[~2021-11-13] MED LIST changes: +ONDA4TAB6 PO
== END ==
LOC: M ONCR 10:50
PROVIDERS: ATTEND General Practice
DX: C83.33 Diffuse large B-cell lymphoma, intra-abdominal lymph nodes (principal); R10.9 Unspecified abdominal pain; R11.2 Nausea with vomiting, unspecified